=== PATIENT | female | born 1995 | race African-American/Black ===

== ENCOUNTER 2017-01-26 23:49 | Emergency (ER) | payer OTHER ==
[~2017-01-26] VITALS: Ht 165.1 cm; Wt 59.4 kg
[2017-01-27] MEDS ORDERED: VALA500T PO (01:04)
--- NOTE | 2017-01-27 01:09 | PHYS DOC ---
General Chief Complaint: PELVIC PAIN Stated Complaint: ABD PAIN Time Seen by MD: 23:57 Source: patient, old records Exam Limitations: no limitations Problems: History of Present Illness Initial Comments Patient is a 21-year-old -[place] female who presents with symptoms unchanged from her prior ED visit on January 07, 2017. Patient states that she is 1 para 0, she says she had a D&C approximately 6 weeks ago due to an abnormal ultrasound with nonviable contents. She says she has not had a period since that time, she was seen January 07 here and a full workup including pelvic exam, pelvic ultrasound, and cultures were sent. On that date she had an unremarkable pelvic ultrasound and candidal yeast infection was diagnosed she was treated appropriately with Diflucan. On that day she admitted to history of gonorrhea, Trichomonas, and chlamydia in the past however it appears she neglected to reveal her history of genital herpes. She does say she is currently having an outbreak but states that it is unrelated to her pelvic pain. She says that her symptoms are identical to her presenting complaint on January 07, she's had no new sexual contacts and has no new vaginal discharge. She denies dyspareunia and is in a monogamous relationship using no contraception. She would like to avoid a pelvic exam if possible and has not followed up for this study sent in the emergency department. She does not have a primary care physician and has never had a gynecologic evaluation despite having health insurance. She denies any other chronic medical conditions and states that she used to take acyclovir for prophylaxis but has not been taking that for some time. Patient admits to smoking cigarettes and I encouraged her to discontinue that use. Results were obtained from the study sent on January 07 ED visit, GC and chlamydia were negative only positive findings were the appropriately treated candidal infection. Timing/Duration: constant Severity: mild Modifying Factors: improves with other Associated Symptoms: other Allergies: Coded Allergies: No Known Drug Allergies (Unverified , 01/27/17) Past Medical History Medical History: other (genital herpes and STIs per history of present illness) Surgical History: other (D&C approximately 6 weeks ago) Social History Smoker: cigarettes Alcohol: none Drugs: none Review of Systems Constitutional: denies chills, denies diaphoresis, denies fever, denies malaise Respiratory: denies cough, denies shortness of breath Cardiovascular: denies chest pain, denies palpitations Gastrointestinal: see HPI, denies diarrhea, denies nausea, denies vomiting Genitourinary: see HPI Musculoskeletal: denies back pain, denies joint pain, denies neck pain Skin: see HPI Psychiatric/Neurological: denies headache, denies numbness, denies paresthesia Physical Exam General Appearance: WD/WN, no apparent distress Eyes: bilateral eye normal inspection, bilateral eye PERRL, bilateral eye EOMI Ear, Nose, Throat: hearing grossly normal, normal ENT inspection Neck: non-tender, supple Respiratory: normal breath sounds, no respiratory distress Cardiovascular: normal peripheral pulses, regular rate, rhythm Gastrointestinal: non tender, soft Rectal: deferred, other (genitourinary exam deferred per patient request) Back: no CVA tenderness, no vertebral tenderness Extremities: non-tender, normal inspection Neurologic/Psychiatric: image scientist II-XII nml as tested, no motor/sensory deficits, alert, normal mood/affect, oriented x 3 Orders, Labs, Meds HCG negative, urine dipstick negative for products of infection I discussed the need for gynecologic evaluation. As the patient requests no pelvic exam take place today I do advise treatment for acute genital herpes outbreak and Valtrex will be prescribed. Contact information for Dr. Farmer as well as other local gynecologists were provided to the patient and she was advised to call Saturday to schedule next available appointment. She was advised to avoid sexual contact until cleared by pharmaceutical sales representative and as previously stated I did advise her to discontinue tobacco abuse. The patient expressed agreement and understanding of the treatment plan. Departure Time of Disposition: 01:05 Disposition: 01 HOME, SELF-CARE Diagnosis: Pelvic Pain NOS, Recurrant HSV-2 Condition: GOOD Patient Instructions: Genital Herpes, Pelvic Pain, Female, [id number] Additional Instructions: As discussed, you will need to follow-up with a pharmaceutical sales representative for further evaluation. Pelvic rest/no vaginal sexual contact until cleared by your pharmaceutical sales representative. Prescription: Valtrex take as directed. Call Saturday to schedule next available gynecologic evaluation. Full contact information handout has been given to you for not only Dr. Farmer but multiple other local gynecologists accepting new patients in this area. Return to ED with other emergency conditions. ARLENE CHOWDHURY DO Jan 27, 2017 01:09
[2017-01-27 01:20] VITALS: BP 110/71
[2017-01-27 01:21] LABS: CLARITY,URINE HAZY; COLOR,URINE YELLOW
[2017-01-27 01:22] LABS: BILIRUBIN,URINE NEG (NEG); GLUCOSE,URINE NEG (NEG); NITRITE,URINE NEG (NEG); UROBILINOGEN,URINE 2 mg/dL (0.2 mg/dL)
[2017-01-27 01:28] LABS: BACTERIA,URINE FEW /HPF (0-FEW); RBC,URINE OCC /HPF (0-2); SQUAMOUS EPITHELIAL CELL,UR FEW /LPF; WBC,URINE OCC /HPF (0-4)
[2017-01-27] MEDS ORDERED: valACYclovir 500 MG TABLET. PO ONE (01:30)
== END 2017-01-27 01:20 | disposition home or self-care (01) ==
LOC: ER 23:49
DX: R10.2 Pelvic and perineal pain (principal); A60.09 Herpesviral infection of other urogenital tract; F17.210 Nicotine dependence, cigarettes, uncomplicated; Z98.890 Other specified postprocedural states
CPT/HCPCS: 81001; 81025; 99283

== ENCOUNTER 2017-03-24 18:29 | Emergency (ER) | payer OTHER ==
[~2017-03-24] VITALS: Ht 165.1 cm; Wt 59.4 kg
[~2017-03-24 18:29] MED LIST: VALA500T PO
[2017-03-24 18:45] VITALS: BP 130/78
--- NOTE | 2017-03-24 19:12 | PHYS DOC ---
General Chief Complaint: SUICDAL IDEATION Stated Complaint: SI Time Seen by MD: 18:53 Source: patient, RN/MD, old records Exam Limitations: no limitations Problems: History of Present Illness Initial Comments Patient is a 21-year-old female who comes to the ED expressing depressed mood and history of suicidal thoughts. RN notifies me that the patient had come to the department tearful expressing suicidal ideation. Medical screening workup was ordered by me in the computer and I went to see the patient. On my arrival to the exam room the patient states that she has had thoughts of harming herself in the past but denies having any currently. She states that she's having some situational problems about which she is now unwilling to go into further detail. [facility] and says today she was very anxious and wanted to come for evaluation. Apparently upon arriving she has changed her mind and states although she still has those problems she does not have any intention or thoughts of harming herself. She denies having had a plan to do so denies prior attempts or evaluations for SI. She denies any illicit substance abuse or any intoxicating substance today. She denies any physical or sexual assault and states she has a safe environment to return to. She agrees to return to the department if she starts having negative thoughts again and agrees to follow-up at the [facility] this week. Timing/Duration: unsure, resolved prior to arrival Severity: severe Modifying Factors: improves with other Associated Symptoms: other Allergies: Coded Allergies: No Known Drug Allergies (Unverified , 01/27/17) Past Medical History Medical History: other (anxiety, depression, STI, ADHD) Surgical History: no surgical history Psychosocial History: anxiety, attn. deficit disorder, depression Social History Smoker: cigarettes Alcohol: none Drugs: none Review of Systems Constitutional: denies chills, denies fever Respiratory: denies cough, denies shortness of breath Cardiovascular: denies chest pain, denies palpitations Gastrointestinal: denies nausea, denies vomiting Musculoskeletal: denies back pain, denies joint swelling Psychiatric/Neurological: see HPI Physical Exam General Appearance: WD/WN, mild distress (tearful and emotional) Eyes: bilateral eye normal inspection, bilateral eye PERRL, bilateral eye EOMI Ear, Nose, Throat: normal ENT inspection Neck: full range of motion, normal inspection Respiratory: normal breath sounds, no respiratory distress Extremities: normal range of motion, normal inspection Neurologic/Psychiatric: qa analyst II-XII nml as tested, no motor/sensory deficits, alert, oriented x 3, depressed affect (although depressed in her mood the patient is alert and oriented 3 and does not appear to be altered or intoxicated. Exhibits UCAR capacity ) Skin: normal color, warm/dry Orders, Labs, Meds The patient was repeatedly offered medical screening and tele-psych evaluation however she declines at this time stating she just wants to go home and go to bed. She denies any thoughts of harming herself or plan to do so and agrees to return to the emergency department if her mind starts wandering and becoming negative again. The patient agrees to follow-up at the [facility] tomorrow and he expressed agreement and understanding with treatment plan. Departure Time of Disposition: 19:07 Disposition: 01 HOME, SELF-CARE Diagnosis: Depressed Mood Condition: IMPROVED Patient Instructions: Suicidal Feelings, How to Help Yourself Additional Instructions: As discussed you have stated that you do not have any feelings of hurting yourself. You agree to return to the emergency department if you start having negative feelings or suicidal ideations. Continue current medications. Follow-up with the [facility] tomorrow. Return to ED with new or changing symptoms. ARLENE CHOWDHURY DO Mar 24, 2017 19:12
== END 2017-03-24 19:17 | disposition home or self-care (01) ==
LOC: ER 18:29
DX: F32.9 Major depressive disorder, single episode, unspecified (principal); R45.851 Suicidal ideations; F41.9 Anxiety disorder, unspecified; F90.9 Attention-deficit hyperactivity disorder, unspecified type; F17.210 Nicotine dependence, cigarettes, uncomplicated
CPT/HCPCS: 94640; 99284

== ENCOUNTER 2017-05-04 13:14 | Emergency (ER) | payer OTHER ==
[~2017-05-04] VITALS: Ht 165.1 cm; Wt 59.4 kg
[2017-05-04 13:51] VITALS: BP 130/78
[2017-05-04 14:46] LABS: BACTERIA,URINE FEW /HPF (0-FEW); BILIRUBIN,URINE NEG (NEG); CLARITY,URINE HAZY; COLOR,URINE YELLOW; GLUCOSE,URINE NEG (NEG); NITRITE,URINE NEG (NEG); UROBILINOGEN,URINE 0.2 mg/dL (0.2 mg/dL)
[2017-05-04 14:47] LABS: SPERM,URINE PRESENT /HPF
[2017-05-04 14:50] LABS: SQUAMOUS EPITHELIAL CELL,UR FEW /LPF
--- NOTE | 2017-05-04 15:33 | PHYS DOC ---
General Chief Complaint: SEXUALLY TRANSMITTED DISEASE Stated Complaint: VAGINAL DISCHARGE/ABDOM PAIN Time Seen by MD: 13:29 Problems: History of Present Illness Initial Comments Patient is a 21-year-old female who came to the ED complaining of vaginal discharge and low abdominal pain. Due to extremely high ED volume and patient acuity initial orders were placed after receiving verbal report from RN. A UA micro-and urine test were ordered. The patient apparently left the emergency department as she became tired of waiting and left without being seen. No history of physical exam or evaluation in any way was completed by me. Allergies: Coded Allergies: No Known Drug Allergies (Unverified , 01/27/17) Past Medical History Medical History: other Surgical History: no surgical history ARLENE CHOWDHURY DO May 04, 2017 15:33
[2017-05-04 15:44] LABS: U PREG PATIENT NEGATIVE (NEG)
== END 2017-05-04 15:10 | disposition left against medical advice (07) ==
LOC: ER 13:14
DX: N89.8 Other specified noninflammatory disorders of vagina (principal); Z53.21 Procedure and treatment not carried out due to patient leaving prior to being seen by health care provider
CPT/HCPCS: 81001; 81025; 99281